=== PATIENT | female | born 1975 | race Caucasian/White ===

== ENCOUNTER → 2024-09-04 | Outpatient (CLI) | payer BC, SELFPAY | END | disposition home or self-care (01) | LOC: SLDO 15:20 | PROVIDERS: PCP Family Medicine; Referring Provider Nurse Practitioner Family; Visit Provider Nurse Practitioner Family | DX: R19.7 Diarrhea, unspecified (principal) | CPT/HCPCS: 87015; 87045; 87046; 87177; 87209; 87899 ==

== ENCOUNTER → 2024-10-22 | Outpatient (CLI) | payer BC, SELFPAY ==
--- NOTE | 2024-10-22 13:00 | XR_ITS ---
Examination: CT chest, without intravenous contrast. Sagittal and coronal 2-D reconstructions. Exam date and time: October 22, 2024 at 1428 hours INDICATIONS: Coughing congestion 3 weeks CTDI:vol (mGy) 16 DLP: (mGycm) 493 Technique: Multiple 3.0 mm axial sections of the chest to been obtained. Bone and lung density settings are obtained. Sagittal and coronal 2-D reconstructions have been obtained. Low dose protocols were performed. One or more of the following dose reduction techniques were used; automated exposure control, adjustment of the mA and/or KV according to patient size, use of iterative reconstruction technique. Findings: No thoracic aortic aneurysm dilatation Main pulmonary artery segment is enlarged measuring 39 mm No paratracheal tracheobronchial or bronchopulmonary adenopathy 3 mm pulmonary nodule anterior segment right upper lobe image 142 Atelectasis in the left lower lung zones Mildly dilated bronchi in the lower lobes No pulmonary edema or lobar pneumonia Fatty liver No pancreatic mass Left adrenal nodule, 18 mm Moderate thoracic spondylosis IMPRESSION: Pulmonary artery hypertension 3 mm pulmonary nodule anterior segment right upper lobe, with this study as baseline recommend continued 6 month follow-up CT chest without contrast Mild bibasilar bronchiectasis 18 mm left adrenal nodule, recommend CT scan abdomen pelvis post intravenous contrast follow-up
[2024-10-22 13:49] LABS: HCG Qualitative,Urine Negative
== END | disposition home or self-care (01) ==
LOC: CCTX 12:40
PROVIDERS: PCP Family Medicine; Referring Provider Physician Assistant; Visit Provider Physician Assistant
DX: I27.21 Secondary pulmonary arterial hypertension (principal); R91.1 Solitary pulmonary nodule; J47.9 Bronchiectasis, uncomplicated; E27.9 Disorder of adrenal gland, unspecified
CPT/HCPCS: 71271; 81025

== ENCOUNTER → 2024-10-25 | Outpatient (CLI) | payer BC, SELFPAY ==
[2024-10-26 15:06] LABS: Cocci Serology, IgM Negative (Negative)
[2024-10-28 13:18] LABS: Cocci Serology, IgG Negative (Negative)
== END | disposition home or self-care (01) ==
PROVIDERS: PCP Family Medicine; Referring Provider Nurse Practitioner Family; Visit Provider Nurse Practitioner Family
DX: J20.9 Acute bronchitis, unspecified (principal)
CPT/HCPCS: 36415; 86331; 86635

== ENCOUNTER → 2024-12-18 | Outpatient (CLI) | payer BC, SELFPAY ==
[2024-12-17 12:48] LABS: HCG Qualitative,Urine Negative
--- NOTE | 2024-12-18 10:30 | XR_ITS ---
Examination: CT abdomen with intravenous contrast CT pelvis with intravenous contrast 2-D coronal reconstructions 2-D sagittal reconstructions Date and time of exam:December 18, 2024 1201 hours INDICATIONS: Diagnosis benign neoplasm left adrenal gland, left upper abdominal discomfort beginning 2 weeks ago, 14 mm fat-containing left adrenal nodule on CT abdomen February 24, 2023. CTDI: vol (mGy) 11.5 DLP: (mGycm) 614 Technique: Multiple axial sections of the abdomen and pelvis have been obtained. 64 slice high-resolution scanner used. 3 mm axial sections have been obtained, post intravenous injection 60 cc [id number] 2-D sagittal, coronal reconstructions obtained. Low dose protocols were performed. One or more of the following dose reduction techniques were used; automated exposure control, adjustment of the mA and/or KV according to patient size, use of iterative reconstruction technique. Findings: No focal liver or splenic lesions No gallstones No pancreatic mass Stable 14 mm fat-containing left adrenal nodule Moderate bilateral renal parenchymal scar formation 2 mm lower pole right renal calculus Aorta normal size 6 mm fat-containing umbilical hernia Normal appendix No bowel obstruction No pelvic mass Contracted urinary bladder IMPRESSION: Stable 14 mm fat-containing left adrenal nodule 2 mm lower pole nonobstructing right renal calculus
== END | disposition home or self-care (01) ==
PROVIDERS: PCP Nurse Practitioner Family; Referring Provider Physician Assistant; Visit Provider Physician Assistant
DX: N20.0 Calculus of kidney (principal); E27.8 Other specified disorders of adrenal gland; Z32.00 Encounter for pregnancy test, result unknown
CPT/HCPCS: 74177; 81025; A4649; Q9967

== ENCOUNTER → 2025-04-04 | Outpatient (CLI) | payer BC, SELFPAY ==
[2025-04-04 17:22] LABS: HCG Qualitative,Urine Negative
== END | disposition home or self-care (01) ==
LOC: SLDO 13:31
PROVIDERS: Referring Provider Family Medicine; Visit Provider Family Medicine
DX: R79.9 Abnormal finding of blood chemistry, unspecified (principal)
CPT/HCPCS: 81025

== ENCOUNTER → 2025-04-07 | Outpatient (CLI) | payer BC, SELFPAY ==
--- NOTE | 2025-04-07 10:30 | XR_ITS ---
Examination: CT chest, without intravenous contrast. Sagittal and coronal 2-D reconstructions. Exam date and time: April 07, 2025 1036 hours Comparison October 22, 2024 INDICATIONS: 3 mm pulmonary nodule anterior segment right upper lobe on CT chest November 01, 2024 CTDI:vol (mGy) 17.7 DLP: (mGycm) 661 Technique: Multiple 3.0 mm axial sections of the chest to been obtained. Bone and lung density settings are obtained. Sagittal and coronal 2-D reconstructions have been obtained. Low dose protocols were performed. One or more of the following dose reduction techniques were used; automated exposure control, adjustment of the mA and/or KV according to patient size, use of iterative reconstruction technique. Findings: No thoracic aortic aneurysm dilatation Main pulmonary artery segment 32 mm. No paratracheal tracheobronchial or bronchopulmonary adenopathy. Stable 3 mm pulmonary nodule anterior segment right upper lobe No new pulmonary nodules No pneumonia or pulmonary edema or pleural disease Fatty infiltration throughout the liver No gallstones Stable 18 mm fat-containing adrenal nodule IMPRESSION: Stable 3 mm pulmonary nodule anterior segment right upper lobe, no new pulmonary nodules
== END | disposition home or self-care (01) ==
LOC: CCTX 10:11
PROVIDERS: PCP Family Medicine; Referring Provider Family Medicine; Visit Provider Family Medicine
DX: R91.1 Solitary pulmonary nodule (principal)
CPT/HCPCS: 71250